=== PATIENT | male | born 1955 | race Caucasian/White ===

== ENCOUNTER 2017-12-23 09:19 | Emergency (ER) | payer OTHER, BC ==
[~2017-12-23 09:19] MED LIST: Atropine 0.1 MG/ML 10 ML Syringe ONE; EPINEPHrine 1 MG/ML SDV ONE; EPINEPHrine 1:10,000 1 MG/10 ML Syringe ONE; Norepinephrine 4 MG/4 ML SDV ONE; Piperacillin/Tazobactam 4.5 GM Vial ONE; Sodium Bicarbonate 8.4% 50 MEQ/50 ML Syringe ONE
[2017-12-23] MEDS ORDERED: Sodium Chloride 0.9% 1,000 ML IV ONE ×2 (09:25→09:45)
[2017-12-23] MEDS ORDERED: Piperacillin/Tazobactam 4.5 GM Vial ONE ×2 (10:05→10:07)
[2017-12-23] MEDS ORDERED: Sodium Chloride 0.9% 100 ML IV ONE ×2 (10:05→10:30)
[2017-12-23] MEDS ORDERED: Dextrose 5% in Water 250 ML IV ONE (10:07)
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
== END 2017-12-23 10:55 | disposition short-term general hospital (02) ==
LOC: VM.ED 09:19
DX: I46.9 Cardiac arrest, cause unspecified (principal); E87.1 Hypo-osmolality and hyponatremia; Y21.9XXA Unspecified drowning and submersion, undetermined intent, initial encounter
CPT/HCPCS: 31500; 36415; 36600; 51702; 71045; 80047; 82803; 84484; 85025; 85379; 85610; 85730; 92950; 93005; 96360; 96361; 96365; 96375; 96376; 99291; 99292; J0171; J0461; J2543; J7030; J7050; J7060